=== PATIENT | female | born 1950 | race Caucasian/White ===

== ENCOUNTER 2018-07-28 13:24 | Observation (INO) ==
--- NOTE | 2018-07-28 13:43 | Emergency Department Note ---
Disposition Clinical Impression: Chest pain Qualifiers: Chest pain type: unspecified Qualified Code(s): R07.9 - Chest pain, unspecified Disposition: Admitted As Inpatient Condition: Fair Referrals: Sharla Velasquez APN [Primary Care Provider] - Forms: ED Satisfaction Letter Time of Disposition: 15:12 Chest Pain HPI - General Chief Complaint: ED Chest Pain Stated Complaint: Chest pain since 0600. Time Seen by Provider: 07/28/18 13:33 Source: patient Mode of arrival: private vehicle Limitations: no limitations Vital Signs Reviewed: Yes Nursing Notes Reviewed: Yes - History of Present Illness Pt complaint: chest pain Onset (ago): hour(s) (Woke up with the chest discomfort about 6:00 this morning and has been continuous since that time) Time: 06:00 Duration: constant Onset: during rest Pain Location: left chest Severity: moderate Severity scale (1-10): 5 Quality: heaviness Pain Radiation: none Improves with: nothing Worsens with: other (Got worse while she was in the shower) Context: other (History of A. fib and history of cardiac catheter a few months ago when got 3 stents at that time. She notes that yesterday she felt a little tired. She went to cardiac rehabilitation this morning and told him about chest discomfort so he told her to come here.) Associated symptoms: Reports: nausea, diaphoresis, dyspnea. Denies: vomiting Treatments prior to arrival chest pain: none - Related Data Home Medications Medication Instructions Recorded Confirmed Apixaban [Eliquis] 5 mg PO BID 06/04/16 07/28/18 Carisoprodol [Soma] 350 mg PO DAILY PRN 06/04/16 07/28/18 Estrogens, Conjugated [Premarin] 0.625 mg PO DAILY 06/04/16 07/28/18 Ezetimibe [Zetia] 10 mg PO DAILY 06/04/16 07/28/18 HYDROcodone/Acet 10/325 mg [[place] 1 tab PO Q6HR PRN 06/04/16 07/28/18 10-325 mg] Lisinopril [Zestril] 10 mg PO DAILY 06/04/16 07/28/18 Metoprolol [Lopressor] 25 mg PO BID 06/04/16 07/28/18 Zolpidem [Ambien] 10 mg PO HS 06/04/16 07/28/18 amLODIPine [Norvasc] 5 mg PO DAILY 06/04/16 07/28/18 Cholecalciferol (Vitamin D3) 5,000 unit PO DAILY 02/25/18 07/28/18 [Vitamin D3] Ranitidine HCl [Acid Edge Burnisher] 150 mg PO DAILY 02/25/18 07/28/18 Previous Rx's Medication Instructions Recorded Aspirin 81 mg PO DAILY #30 tab.chew 02/26/18 Clopidogrel [Plavix] 75 mg PO DAILY #30 tablet 02/26/18 Nitroglycerin 0.4 mg SL Q5MIN PRN #30 tab.subl 02/26/18 Allergies Allergy/AdvReac Type Severity Reaction Status Date / Time azithromycin Allergy Vomiting Verified 07/29/17 12:18 [From Zithromax Z-South] clindamycin Allergy Nausea Verified 02/25/18 08:27 codeine Allergy Vomiting Verified 07/29/17 12:18 morphine Allergy Gastrointestinal Verified 07/29/17 12:18 Upset Penicillins Allergy Hives Verified 07/29/17 12:18 Sulfa (Sulfonamide Allergy Swelling Verified 07/29/17 12:18 Antibiotics) of Lip/Tongue/Throat acetaminophen [From Percocet] AdvReac Itching Verified 07/29/17 12:18 cephalexin [From Keflex] AdvReac See Verified 07/29/17 12:18 Comments gabapentin [From Neurontin] AdvReac See Verified 07/29/17 12:18 Comments hydrochlorothiazide AdvReac See Verified 07/29/17 12:18 [From Maxzide] Comments Oxycodone [From Percocet] AdvReac Itching Verified 07/29/17 12:18 prednisolone AdvReac See Verified 07/29/17 12:18 Comments prednisone AdvReac Itching Verified 07/29/17 12:18 promethazine [From Phenergan] AdvReac Vomiting Verified 07/29/17 12:18 rosuvastatin [From Crestor] AdvReac Muscle Pain Verified 07/29/17 12:18 simvastatin [From Zocor] AdvReac Cramping Verified 07/29/17 12:18 of the Muscles tramadol AdvReac Weakness Verified 07/29/17 12:18 Triamterene [From Maxzide] AdvReac See Verified 07/29/17 12:18 Comments All systems ED: reviewed and negative except as stated. Constitutional: Denies: fever, chills ENT ED: Denies: ear pain, throat pain, congestion Cardiovascular: Reports: chest pain, dyspnea on exertion. Denies: palpitations Respiratory: Denies: cough, wheezes Gastrointestinal: Reports: nausea. Denies: abdominal pain Integumentary: Denies: rash Neurological: Denies: headache Chest Pain PMH - Past Medical History Medical history: Reports: arthritis, atrial fibrillation, COPD, fibromyalgia, GERD, hyperlipidemia, hypertension, myocardial infarction Surgical history: Reports: angioplasty/stent, hysterectomy Psychiatric history: Reports: anxiety, depression CORPORATE DEVELOPMENT OFFICER history: Reports: no CORPORATE DEVELOPMENT OFFICER history, bilateral tubal ligation - Social History Smoking Status: Former smoker Alcohol use: Reports: none Drug use: Reports: none Physical Exam - General Limitations: no limitations General appearance: alert, in no apparent distress - Head Head exam: atraumatic, normocephalic, normal inspection - Eye Eye exam: Present: normal appearance, PERRL, EOMI. Absent: scleral icterus, conjunctival injection - ENT ENT exam: normal exam, normal oropharynx, mucous membranes moist, normal external ear exam - Neck Neck exam: Present: normal inspection, full ROM, trachea midline - Chest Chest inspection: Present: normal inspection, symmetric chest wall rise, tenderness (There is mild tenderness along the ribs beneath the left breast) - Respiratory Respiratory exam: Present: normal lung sounds bilaterally. Absent: respiratory distress, wheezes - Cardiovascular Cardiovascular exam: Present: regular rate, irregular rhythm, normal heart sounds, other (Blood pressures are basically equal in both arms.) - Abdominal Exam Abdominal exam: Present: soft, Non-Tender, normal bowel sounds - Extremities Exam Extremities exam: Present: normal inspection. Absent: pedal edema - Neurological Exam Neurological exam: Present: alert, oriented X3 - Psychiatric Psychiatric exam: Present: normal affect, normal mood - Skin Skin exam: Present: warm, dry. Absent: rash Course Course Narrative: Patient presents with chest discomfort located left chest. She says she gets this all the time but usually last 10 or 15 minutes and she will sit on arrested and will go away. This time she woke up with it in its persisted since 6:00 this morning. Got worse when she was in the shower. Still having discomfort at this time. However despite having discomfort at this time, her EKG looks okay. She has a chronic A. fib and she has evidence of Q waves in lead 3 but these are seen on old EKGs. We will get a cardiac workup going on the patient. Disposition will be based on diagnostic results and reevaluation. - Reevaluation(s) Reevaluation #1: Initial troponin was negative drawn 8 hours after the onset of discomfort. This coupled with a nonacute EKG is reassuring. However given the patient's history and the description of all of her symptoms I feel it best to do serial enzymes on her. I discussed the case with Dr. Gr. He agrees to accept the patient to the hospital but recommends that we do a repeat troponin to make sure that it is not elevating rapidly. As long as is not elevating then she can be admitted to the hospital. Time: 15:11 - Consultations Consultation #1: Dr. Gr, hospitalist - I discussed case with the hospital is. He is accepted the patient to admission to the hospital pending repeat troponin. Time: 15:05 Vital Signs O2 Sat by Pulse Oximetry 98 07/28/18 13:24 Temperature 98.1 F 07/28/18 13:25 Pulse Rate 74 07/28/18 14:24 Respiratory Rate 15 07/28/18 14:24 Blood Pressure 122/62 07/28/18 14:24 O2 Sat by Pulse Oximetry 97 07/28/18 14:24 Oxygen Delivery Oxygen Delivery Nasal Cannula Chest Pain - Medical Records Medical records reviewed: Yes I reviewed the patient's medical records. - Lab Data Lab results reviewed: Yes I reviewed the patient's lab results. Result diagrams: 07/28/18 13:52 07/28/18 13:52 Lab Results 07/28/18 07/28/18 07/28/18 Range/Units 13:52 13:52 13:52 WBC 6.9 (4.3-11.1) K/mcL RBC 4.62 (3.82-4.97) M/mcL Hgb 15.1 (11.5-15.4) g/dL Hct 43.4 (35.3-44.9) % MCV 93.9 (83.0-100.0) fL MCH 32.7 (28.0-33.3) pg MCHC 34.8 (31.6-35.5) g/dL RDW 13.2 (11.5-14.5) % Plt Count 159 (140-400) K/mcL MPV 10.4 (9.4-12.4) fL Immature Gran % 0.3 (0-4) % Seg Neutrophils % 61.0 % Lymphocytes % 29.9 % Monocytes % 6.9 % Eosinophils % 1.5 % Basophils % 0.4 % Neutrophils # 4.2 (1.6-8.9) K/mcL Lymphocytes # 2.1 (0.6-4.6) K/mcL Monocytes # 0.5 (0.0-1.3) K/mcL Eosinophils # 0.1 (0.0-0.6) K/mcL Basophils # 0.0 (0.0-0.2) K/mcL PT 14.1 H (9.4-12.1) Seconds INR 1.3 APTT 33.8 (26.0-36.0) Seconds Sodium (136-145) mEq/L Potassium (3.5-5.1) mEq/L Chloride (98-107) mEq/L Carbon Dioxide (23-29) mEq/L BUN (8-23) mg/dL Creatinine (0.60-1.20) mg/dL Est GFR ( Amer) (> 60) Est GFR (Non-Af Amer) (> 60) BUN/Creatinine Ratio (6-26) Glucose (70-105) mg/dL Calculated Osmolality (280-300) Calcium (8.6-10.3) mg/dL Troponin I (< 0.04) ng/mL B-Natriuretic Peptide 105 H (Less than 100) pg/mL 07/28/18 Range/Units 13:52 WBC (4.3-11.1) K/mcL RBC (3.82-4.97) M/mcL Hgb (11.5-15.4) g/dL Hct (35.3-44.9) % MCV (83.0-100.0) fL MCH (28.0-33.3) pg MCHC (31.6-35.5) g/dL RDW (11.5-14.5) % Plt Count (140-400) K/mcL MPV (9.4-12.4) fL Immature Gran % (0-4) % Seg Neutrophils % % Lymphocytes % % Monocytes % % Eosinophils % % Basophils % % Neutrophils # (1.6-8.9) K/mcL Lymphocytes # (0.6-4.6) K/mcL Monocytes # (0.0-1.3) K/mcL Eosinophils # (0.0-0.6) K/mcL Basophils # (0.0-0.2) K/mcL PT (9.4-12.1) Seconds INR APTT (26.0-36.0) Seconds Sodium 134 L (136-145) mEq/L Potassium 3.8 (3.5-5.1) mEq/L Chloride 103 (98-107) mEq/L Carbon Dioxide 27 (23-29) mEq/L BUN 9 (8-23) mg/dL Creatinine 0.81 (0.60-1.20) mg/dL Est GFR ( Amer) > 60 (> 60) Est GFR (Non-Af Amer) > 60 (> 60) BUN/Creatinine Ratio 11 (6-26) Glucose 134 H (70-105) mg/dL Calculated Osmolality 279 L (280-300) Calcium 10.1 (8.6-10.3) mg/dL Troponin I < 0.03 (< 0.04) ng/mL B-Natriuretic Peptide (Less than 100) pg/mL - Radiology Data Radiology results reviewed: Yes I reviewed the patient's radiology results. - EKG Data EKG attestation: Yes I reviewed and interpreted this EKG. EKG results narrative: Twelve-lead EKG performed at 1320 9 PM shows atrial fibrillation at a rate of 76. Normal axis. Good hour progression across precordium. No obvious acute ischemic changes. Changes in leads 3 are seen on EKGs from earlier this year. Intervals are otherwise normal except for the A. fib.
[2018-07-28 13:59] LABS: Basophils % 0.4 %; Eosinophils # 0.1 K/mcL (0.0-0.6); Eosinophils % 1.5 %; Hematocrit 43.4 % (35.3-44.9); Hemoglobin 15.1 g/dL (11.5-15.4); Immature Granulocytes % 0.3 % (0-4); Lymphocytes # 2.1 K/mcL (0.6-4.6); Lymphocytes % 29.9 %; Mean Corpuscular HGB Conc 34.8 g/dL (31.6-35.5); Mean Corpuscular Hemoglobin 32.7 pg (28.0-33.3); Mean Corpuscular Volume 93.9 fL (83.0-100.0); Mean Platelet Volume 10.4 fL (9.4-12.4); Monocytes # 0.5 K/mcL (0.0-1.3); Monocytes % 6.9 %; Neutrophils # 4.2 K/mcL (1.6-8.9); Platelet Count 159 K/mcL (140-400); Red Blood Count 4.62 M/mcL (3.82-4.97); Red Cell Distribution Width 13.2 % (11.5-14.5)
[2018-07-28 14:10] LABS: INR 1.3; Prothrombin Time 14.1 Seconds (9.4-12.1)
[2018-07-28 14:12] LABS: Activated Partial Thrombo Time 33.8 Seconds (26.0-36.0)
[2018-07-28 14:20] LABS: BUN/Creatinine Ratio 11 (6-26); Blood Urea Nitrogen 9 mg/dL (8-23); Calcium 10.1 mg/dL (8.6-10.3); Carbon Dioxide 27 mEq/L (23-29); Chloride 103 mEq/L (98-107); Glucose 134 mg/dL (70-105); Osmolality,Calculated 279 (280-300); Potassium 3.8 mEq/L (3.5-5.1); Sodium 134 mEq/L (136-145); eGFR For Non-African Americans > 60 (> 60)
[2018-07-28 14:21] LABS: Troponin I < 0.03 ng/mL (< 0.04)
[2018-07-28] MEDS ORDERED: *HR* HYDROcodone/Acet 10/325 mg TABLET PO PRN (17:28)
[2018-07-28] MEDS ORDERED: Carisoprodol 350 MG TABLET PO PRN (17:28)
[2018-07-28] MEDS ORDERED: Naloxone 0.4 MG/ML INJ IVP PRN (17:28)
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
[2018-07-28] MEDS ORDERED: Nitroglycerin 0.4 MG TAB.SUBL SL PRN (19:26)
[2018-07-28] MEDS: Apixaban 5 MG TABLET PO SCH (21:54)
[2018-07-29] MEDS ORDERED: (Ezetimibe [Zetia] 10 MG) PO SCH (09:00)
[2018-07-29] MEDS ORDERED: amLODIPine 5 MG TABLET PO SCH (09:00)
[2018-07-29] MEDS ORDERED: Aspirin 81 MG TAB.CHEW PO SCH (09:00)
[2018-07-29] MEDS ORDERED: Famotidine 20 MG TABLET PO SCH (09:00)
[2018-07-29] MEDS: Apixaban 5 MG TABLET PO SCH (09:19)
[2018-07-29 10:36] VITALS: BP 160/98
--- NOTE | 2018-07-29 11:34 | Discharge Summary ---
Date of Encounter: 07/29/18 Time of Encounter: 11:25 - Discharge Diagnosis (1) Chest pain Priority: Primary Status: Resolved Qualifiers: Chest pain type: unspecified Qualified Code(s): R07.9 - Chest pain, unspecified (2) Atrial fibrillation Priority: Secondary Status: Chronic Qualifiers: Atrial fibrillation type: persistent Qualified Code(s): I48.1 - Persistent atrial fibrillation (3) Essential hypertension Priority: Secondary Status: Chronic Hospital course: Ms. Holt is a 67 year old female who came to emergency room stating she was awakened approximately 0600 while in bed with discomfort in her upper abdominal area and chest that radiated to her back. She had nausea without vomiting. She had slight dyspnea. She went back to sleep but the discomfort persisted upon awakening. She came to emergency room and was evaluated and admitted to [facility] for ongoing care needs. Initial orders were written by the emergency room physician. I saw her on July 28 and performed a history and physical. Repeat cardiac enzymes showed no evidence of myocardial damage. D-dimer returned < 215. Her chest pain had resolved when I saw her on July 29. The etiology of the pain was not determined with certainty. Her blood pressure was frequently above desirable range. Lisinopril be increased to 20 mg daily. She will continue present doses of Norvasc and Lopressor. On July 29 she felt stable for discharge home. She will follow with her PCP within 1 week. - Time Spent with Patient Total time spent providing and/or coordinating discharge services: - Discharge Medications Home Medications: Apixaban [Eliquis] 5 mg PO BID 06/04/16 [History] Carisoprodol [Soma] 350 mg PO DAILY PRN 06/04/16 [History] Estrogens, Conjugated [Premarin] 0.625 mg PO DAILY 06/04/16 [History] Ezetimibe [Zetia] 10 mg PO DAILY 06/04/16 [History] HYDROcodone/Acet 10/325 mg [[place] 10-325 mg] 1 tab PO Q6HR PRN 06/04/16 [History ] Metoprolol [Lopressor] 25 mg PO BID 06/04/16 [History] Zolpidem [Ambien] 10 mg PO HS 06/04/16 [History] amLODIPine [Norvasc] 5 mg PO DAILY 06/04/16 [History] Cholecalciferol (Vitamin D3) [Vitamin D3] 5,000 unit PO DAILY 02/25/18 [History] Ranitidine HCl [Acid Business Continuity Specialist] 150 mg PO DAILY 02/25/18 [History] Aspirin 81 mg PO DAILY #30 tab.chew 02/26/18 [Rx] Clopidogrel [Plavix] 75 mg PO DAILY #30 tablet 02/26/18 [Rx] Nitroglycerin 0.4 mg SL Q5MIN PRN #30 tab.subl 02/26/18 [Rx] Lisinopril [Zestril] 20 mg PO DAILY tablet 07/29/18 [Rx] Allergies/Adverse Reactions: 3 Allergy/AdvReac Type Severity Reaction Status Date / Time azithromycin Allergy Vomiting Verified 07/29/17 12:18 [From Zithromax Z-South] clindamycin Allergy Nausea Verified 02/25/18 08:27 codeine Allergy Vomiting Verified 07/29/17 12:18 morphine Allergy Gastrointestinal Verified 07/29/17 12:18 Upset Penicillins Allergy Hives Verified 07/29/17 12:18 Sulfa (Sulfonamide Allergy Swelling Verified 07/29/17 12:18 Antibiotics) of Lip/Tongue/Throat acetaminophen [From Percocet] AdvReac Itching Verified 07/29/17 12:18 cephalexin [From Keflex] AdvReac See Verified 07/29/17 12:18 Comments gabapentin [From Neurontin] AdvReac See Verified 07/29/17 12:18 Comments hydrochlorothiazide AdvReac See Verified 07/29/17 12:18 [From Maxzide] Comments Oxycodone [From Percocet] AdvReac Itching Verified 07/29/17 12:18 prednisolone AdvReac See Verified 07/29/17 12:18 Comments prednisone AdvReac Itching Verified 07/29/17 12:18 promethazine [From Phenergan] AdvReac Vomiting Verified 07/29/17 12:18 rosuvastatin [From Crestor] AdvReac Muscle Pain Verified 07/29/17 12:18 simvastatin [From Zocor] AdvReac Cramping Verified 07/29/17 12:18 of the Muscles tramadol AdvReac Weakness Verified 07/29/17 12:18 Triamterene [From Maxzide] AdvReac See Verified 07/29/17 12:18 Comments Date of admission: 07/28/18 16:28 Primary care physician: Sharla Velasquez APN - Constitutional Vitals: Temp Pulse Resp BP Pulse Ox 98.6 F 92 16 160/98 97 07/29/18 10:34 07/29/18 10:34 07/29/18 10:34 07/29/18 10:34 07/29/18 10:34 - Patient Status Disposition: Home, Self-Care Condition: Fair - Discharge Instructions Follow Up With: Sharla Velasquez APN [Primary Care Provider] - 1 week - Diet and Activity Activity: resume usual activities as tolerated Diet: advance to your usual diet - VTE Reasons for not Prescribing Prophylaxis: Not indicated-Anticoagulated or INR therapeutic Documentation of Mechanical Device: Graduated compression elastic hosiery
--- NOTE | 2018-07-29 18:48 | Electrocardiograph Report ---
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
--- NOTE | 2018-07-29 19:06 | Electrocardiograph Report ---
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
== END 2018-07-29 12:57 | disposition home or self-care (01) ==
LOC: EMEROOPIK 13:24 → INPPIK 13:24
PROVIDERS: ADMIT Internal Medicine; ATTEND Internal Medicine